=== PATIENT | male | born 1975 | race Two or more races ===

== ENCOUNTER 2019-09-16 12:00 | Emergency (ER) | payer OTHER ==
[~2019-09-16] VITALS: Ht 170.2 cm; Wt 104.0 kg
--- NOTE | 2019-09-16 12:32 | NUR ---
this tech hooked pt up to monitor
--- NOTE | 2019-09-16 12:55 | NUR ---
PT CAME IN CO OF IMPARIED TASTE AND SORE THROAT. SAYS "EVERYTHING TASTES HORRIBLE. EVEN WATER. I CANT SLEEP. MY ABD HURTS". PT IS CONNECTED TO MONITORING EQUIPMENT.
[2019-09-16 13:24] LABS: MEAN CORPUSCULAR HEMOGLOBIN 28.2 pg (27.5-34.5); MEAN CORPUSCULAR HGB CONC 32.7 g/dL (33.2-36.2); MEAN CORPUSCULAR VOLUME 86.1 fL (81-97); MEAN PLATELET VOLUME 8.4 fL (7.4-10.4); PLATELET COUNT 319 x10^3/uL (130-400); RED CELL DISTRIBUTION WIDTH 12.4 % (9.4-14.8)
[2019-09-16 13:29] LABS: ALANINE AMINOTRANSFERASE 41 U/L (12-78); ALBUMIN 2.3 g/dL (3.4-5.0); ANION GAP 15 mmol/L (5-15); CALCIUM 8.3 mg/dL (8.5-10.1); CHLORIDE 97 mmol/L (98-107)
[2019-09-16] MEDS ORDERED: CEFTRIAXONE PMX 1GM/50ML 50 ML IVPB ONE (13:30)
[2019-09-16] MEDS ORDERED: AZITHROMYCIN 500 MG in SODIUM CHLORIDE 0.9% 250 ML IV ONE (13:30)
[2019-09-16 13:32] LABS: D-DIMER (DIC) 1.28 ug/mlFEU (0.00-0.52); PROTIME 10.1 Seconds (9.6-11.5)
[2019-09-16 13:36] LABS: ALKALINE PHOSPHATASE 141 U/L (45-117); BILIRUBIN,TOTAL 0.6 mg/dL (0.2-1.0); TOTAL PROTEIN 8.2 g/dL (6.4-8.2)
[2019-09-16] MEDS ORDERED: CEFTRIAXONE PMX 1GM/50ML 50 ML ONE (13:39)
[2019-09-16 13:44] LABS: MD YES
[2019-09-16 13:50] VITALS: BP 118/77
[2019-09-16 13:50] LABS: BAND#(MANUAL) 1.23 x10^3/uL; BANDS%(MANUAL) 11 % (0-7); BASOS#(MANUAL) 0.11 x10^3/uL (0-0.1); BASOS% (MANUAL) 1 % (0-1); LYMPH#(MANUAL) 1.68 x10^3/uL (1-3.4); LYMPHS% (MANUAL) 15 % (22-44); MONOS#(MANUAL) 0.11 x10^3/uL (0.3-2.7); MONOS% (MANUAL) 1 % (2-9); SEG#(MANUAL) 8.06 x10^3/uL (1.8-6.8); SEGS% (MANUAL) 72 % (42-75)
[2019-09-16 13:51] LABS: <PLATELET ESTIMATE> ADEQUATE; GIANT PLATELETS 1+
--- NOTE | 2019-09-16 13:56 | NUR ---
ANTIBIOTICS INFUSING. PT STATES HE HAS AN UPSET STOMACH AND REQUESTING SOMETHING FOR IT. PA MADE AWARE AND ORDERS TO BE GIVEN FOR SAME
[2019-09-16] MEDS ORDERED: DICYCLOMINE 20 MG TABLET PO ONE (14:00)
[2019-09-16] MEDS ORDERED: METOCLOPRAMIDE 10MG TABLET PO ONE (14:00)
[2019-09-16 14:11] LABS: <RBC MORPHOLOGY> NORMAL
[2019-09-16] MEDS ORDERED: METOCLOPRAMIDE 5 MG/ML, 2ML ONE (14:18)
[2019-09-16] MEDS ORDERED: DICYCLOMINE 20 MG TABLET ONE (14:18)
[2019-09-16] MEDS ORDERED: DEXAMETHASONE 4 MG/ML, 1ML IVPush ONE (14:30)
[2019-09-16] MEDS ORDERED: DEXAMETHASONE 4 MG/ML, 1ML ONE (14:44)
--- NOTE | 2019-09-16 15:30 | NUR ---
PT OXYGEN SATURATION FLUXATES FROM 86 TO 91 PERCENT. PLACED ON 2L NC AND NOW 93 PERCENT. HOSPITALIST EXAMINATION AND REPORT GIVEN TO RAMON NAVARRO
[2019-09-16] MEDS ORDERED: PROMETHAZINE 25 MG/ML, 1ML IM PRN (16:00)
[2019-09-16] MEDS ORDERED: GUAIFENESIN/DM 200-20MG, 10ML UDC PO PRN (16:00)
[2019-09-16] MEDS ORDERED: POLYETHYLENE GLYCOL 17 GM PACKET PO PRN (16:00)
[2019-09-16] MEDS ORDERED: ACETAMINOPHEN 325 MG TABLET PO PRN (16:00)
[2019-09-16] MEDS ORDERED: LABETALOL 5MG/ML, 20ML IVPush PRN (16:00)
[2019-09-16] MEDS ORDERED: ONDANSETRON 2MG/ML, 2ML IVPush PRN (16:00)
[2019-09-16] MEDS ORDERED: DOCUSATE 100 MG CAPSULE PO PRN (16:00)
[2019-09-16] MEDS ORDERED: ONDANSETRON ODT 4 MG PO PRN (16:00)
--- NOTE | 2019-09-16 16:14 | NUR ---
PT TOLD TRANSPORT STAFF HE DOES NOT WANT TO GO TO ROOM AND WANTS TO GO HOME. EXPLAINED TO PATIENT HIS XRAY SHOWS A BAD PNA AND THAT HIS OXYGEN IS LOW. ADDITONALLY DISCUSSED HE COULD BECOME CRITICALLY ILL AND MAY EVEN . PT CONTINUES TO WANT TO GO HOME. PAGE OUT TO [facility] RESIDENT [employer] EPPERSON
[2019-09-16] MEDS ORDERED: GLUCAGON 1 MG IM PRN (16:30)
[2019-09-16] MEDS ORDERED: INSULIN LISPRO 100 UNITS/ML, PEN SQ-INSULIN SCH (16:30)
[2019-09-16] MEDS ORDERED: DEXTROSE 50%, 50ML SYRINGE IVPush PRN (16:30)
[2019-09-16] MEDS ORDERED: DEXTROSE 4 GM TAB.CHEW PO PRN (16:30)
--- NOTE | 2019-09-16 16:32 | NUR ---
SPOKE WITH JOSE ALEJANDRO HA AND SHE IS AWARE PT WANTS TO AMA. SHE IS TO COME TO ER TO SPEAK WITH PT
--- NOTE | 2019-09-16 17:08 | NUR ---
PT SIGNED AMA DOCUMENT AND AGAIN ENCOURAGED TO RETURN TO ER AT ANYTIME. PT GIVEN PRESCRIPTION FOR DOXYCYLINE WRITTEN BY JOSE ALEJANDRO BENNETT. PT ADDITIONALLY ENCOURAGED TO HAVE TELEMEDICINE CONTACT WITH HIS DOCTOR TOMORROW.
[2019-09-16] MEDS ORDERED: HEPARIN 5,000 UNITS/ML, 1ML SQ SCH (17:30)
[2019-09-16] MEDS ORDERED: SODIUM CHLORIDE FLUSH 10ML SYR IVF SCH (21:00)
[2019-09-17] MEDS ORDERED: DEXAMETHASONE 4 MG/ML, 1ML IVPush SCH (09:00)
[2019-09-17] MEDS ORDERED: SENNA/DOCUSATE TABLET PO SCH (09:00)
[2019-09-17] MEDS ORDERED: CEFTRIAXONE PMX 1GM/50ML 50 ML IV SCH (13:30)
[2019-09-17] MEDS ORDERED: AZITHROMYCIN 250 MG TABLET PO ONE (13:30)
== END 2019-09-16 17:34 | disposition left against medical advice (07) ==
LOC: ED 16:02
DX: U07.1 COVID-19 (principal); J18.0 Bronchopneumonia, unspecified organism; R09.02 Hypoxemia; R00.0 Tachycardia, unspecified; E11.9 Type 2 diabetes mellitus without complications
CPT/HCPCS: 36415; 71045; 80053; 82728; 83605; 83615; 84145; 85025; 85049; 85379; 85384; 85610; 85730; 86140; 87040; 87635; 93005; 96365; 96367; 96375; 99285; J0456; J0696; J1100; J7050; 96366